=== PATIENT | male | born 1995 | race Asian ===

== ENCOUNTER 2023-12-21 15:19 | Outpatient (CLI) | payer OTHER ==
--- NOTE | 2023-12-21 15:55 | Sleep Patient Instructions ---
Sleep Center Visit Summary - Patient Visit Information Reason for Visit: Initial consult for evaluation of sleep disordered breathing and other sleep issues. - Patient Instructions Instructions Attached: Sleep Study Home Monitor Additional Instructions: You will be completing a sleep study, either an in-lab polysomnography (PSG) or home sleep study (HST). You will follow-up in the sleep care office after the sleep study is completed to hear the results and talk about therapy, if needed. You will be called by our office staff to schedule this appointment, but you may contact us with any questions. - Clinic Information Contact: [facility] [address] [place] [address] [email or web address] T: [phone]
--- NOTE | 2023-12-21 15:57 | SLEEP CARE CONSULTATION ---
Information from patient questionnaire entered by Tracy Perera. I have reviewed and concur with the information entered by Tracy Perera. This document represents the service I personally performed and the decisions made by me, Palmira Palomo ARNP. History of Present Illness Service Date and Time: 12/21/2023 1519 Reason for Visit: New patient Chief Complaint: reports: Snoring, Excessive daytime sleepiness, Observed pauses in breathing, Fatigue, Frequent awakenings at night Date of Onset: ALMOST 3MONTHS Usual bedtime: 930-10PM Time it takes to fall asleep: 15-20MINS Snores at night: Yes Observed to quit breathing while asleep: Yes Sleeps alone due to snoring: No Number of times waking at night: 5+ Reasons for waking at night: reports: Snoring, Gasping for air, Pain, Other (UNKNOWN). denies: Choking Toss, Turn, or Twitch while sleeping: Yes Recalls having dreams: Yes (has vivid dreams sometimes) Usually gets out of bed at: 4-430AM Feels refreshed in the morning: No (sometimes will feel rested) Morning headache: Yes (3-4 times a week; last about 30 mins, goes away with coffee in AM) Sleepy or fatigued during the day: Yes Ever fallen asleep while driving: No Takes day naps: Yes (3-4 days a week; 30-60 minutes normally) Dreams during day naps: Yes Prior sleep studies: No Additional HPI information: I had the pleasure of seeing INDIO HUGO today regarding the possibility of him having a sleep disorder. His current complaints are snoring, excessive daytime sleepiness, observed pauses in breathing, fatigue and frequent night awakenings. He says he saw his PCP about his snoring intermittently and "breathing loud" at night. He thought it was normal. He says when he takes a nap after work because he is tired and his has noticed that he stops breathing. He says he can wake up with a headache after sleeping or in the morning upon awakening. 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 Patient is and lives in . Have you smoked in the past 12 months: No Alcohol use: Yes Alcohol amount and frequency: 2-3 BOTTLES TWICE A MONTH OCCASSIONALLY Caffeine use: Yes Caffeine amount and frequency: EVERYDAY Family History Family history of sleep disordered breathing: Yes Family Hx Sleep Apnea: Father: Snoring Allergies and Home Medications Known drug allergies: No Drug allergies reviewed: Yes Home medication list reviewed: Yes Allergy and home medication list: Allergies No Known Drug Allergies Allergy (Verified 12/19/23 11:40) Home Medications Medication Instructions Recorded Confirmed Last Taken Type Amitriptyline [Elavil] See Rx Instructions .ROUTE .COMPLEX 12/21/23 12/21/23 Unknown History Meloxicam See Rx Instructions .ROUTE .COMPLEX 12/21/23 12/21/23 Unknown History Naproxen See Rx Instructions .ROUTE .COMPLEX 12/21/23 12/21/23 Unknown History Triamcinolone 0.1% Oint [Kenalog See Rx Instructions .ROUTE .COMPLEX 12/21/23 12/21/23 Unknown History 0.1% Oint] Review of Systems Weight gain over past 5 years: 40 Cardiovascular: reports: chest pain. denies: high blood pressure Gastrointestinal: reports: heartburn Urinary: reports: frequency Neurological: reports: headaches, head trauma Psychiatric: reports: anxiety Ear/Nose/Throat: denies: tonsillectomy Musculoskeletal: reports: neck pain, back pain, muscle pain or cramping, mobility problems Immunologic: reports: rash, itching Physical Exam Vital signs obtained and entered by: SHERICE Puga MA Blood Pressure: 133/84 (RIGHT ARM) Cuff size: regular Heart Rate: 77 O2 Saturation: 99 Height: 6 ft Weight: 183 lb 12.8 oz Body Mass Index: 24.9 BMI Classification: Normal Neck circumference: 16.5 Mouth and throat: narrow oropharynx Soft palate: normal Hard palate: normal Uvula: normal Uvula visualization: 100% Mallampati Class I Tongue: enlarged in size with teeth farris on lateral edges Tonsils: small Neck: normal w/o lymphadenopathy or thyromegaly Heart: regular rate and rhythm Lungs: clear bilaterally Impression and Plan 1. Suspected Obstructive Sleep Apnea-Hypopnea Syndrome, as suggested by a history of loud and irregular snoring, observed cessation of breath while asleep, gasping or choking in sleep, morning headache, frequent awakening during the night, unrefreshed sleep, cognitive impairment, and excessive daytime sleepiness. Narrow oropharynx and obesity are common predisposing factors for obstructive sleep apnea-hypopnea syndrome. I recommend proceeding to polysomnography to confirm the diagnosis and to assess severity. If the patient has significant sleep disordered breathing, a manual CPAP titration study will also be performed to find the optimal treatment pressure. I informed the patient of what the sleep studies involve and after some discussion, obtained agreement to proceed. The pathophysiology of obstructive sleep apnea-hypopnea syndrome was discussed with the patient and health risks of cardiovascular and cerebrovascular disease if not treated. Risks of drowsy driving discussed in detail and patient advised to avoid long distance driving and to pulley man at the first sign of drowsiness. Patient agreed to plan. * Schedule polysomnography +- manual CPAP titration study and return in 1-2 weeks after the study to discuss result and initiate therapy. * Avoid long distance driving or driving when feeling sleepy. * Avoid alcohol, sedative and muscle relaxant around bedtime. * Review instructions provided by trained office staff on how to prepare for the sleep study. * Return for follow-up after sleep study completed. Follow up with Sleep Care in: other (after sleep study to go over results) Plan: PSG/HST Visit Type: In Office Time Spent with Patient (minutes): 34 Provider Statement: I spent 100% of the Face to Face Visit with the patient with greater than 50% spent counseling the patient and coordination of care.
[2023-12-21 15:59] VITALS: BP 133/84; O2SAT 99
== END 2023-12-21 15:20 | disposition home or self-care (01) ==
LOC: SC 15:19
PROVIDERS: ATTEND Nurse Practitioner Family
DX: R06.83 Snoring (principal); G47.8 Other sleep disorders; R06.81 Apnea, not elsewhere classified; R51.9 Headache, unspecified; G47.10 Hypersomnia, unspecified; R53.83 Other fatigue; R41.89 Other symptoms and signs involving cognitive functions and awareness
CPT/HCPCS: 99203; 99212

== ENCOUNTER 2024-02-01 12:25 | Outpatient (CLI) | payer OTHER | END 2024-02-01 12:26 | disposition home or self-care (01) | LOC: SC 12:25 | PROVIDERS: ATTEND Nurse Practitioner Family | DX: R09.02 Hypoxemia (principal) | CPT/HCPCS: 95806 ==

== ENCOUNTER 2024-03-09 14:47 | Outpatient (CLI) | payer OTHER ==
--- NOTE | 2024-03-09 14:59 | Sleep Patient Instructions ---
Sleep Center Visit Summary - Patient Visit Information Reason for Visit: Sleep study follow-up - Patient Instructions Additional Instructions: Your sleep study today was negative for significant sleep disordered breathing. You were found to have episodes of snoring. There are different ways to control snoring including weight loss, oral devices made by a dentist or surgical options through ENT specialist. You should not use oral devices that do not fit properly because they can affect your bite. You should also check insurance coverage of oral devices for snoring because they may not be cover well. You may obtain a referral to an ENT specialist through your primary provider. Follow-up as needed. - Clinic Information Contact: [facility] [address] [place] [address] [email or web address] T: [phone]
--- NOTE | 2024-03-09 15:01 | SLEEP CARE CONSULTATION ---
Information from patient questionnaire entered by Tracy Perera. I have reviewed and concur with the information entered by Tracy Perera. This document represents the service I personally performed and the decisions made by , Palmira Palomo ARNP. History of Present Illness Service Date and Time: 03/09/2024 144 Initial [place] Sleepiness Scale score: 17 (12/01/23) Current [place] Sleepiness Scale score: 16 (03/09/24) Additional HPI information: INDIO HUGO returns for follow up and results of the recently performed home sleep study. The patient was informed of the following findings: No significant sleep disordered breathing with an average AHI of 1.9 and jennifer oxygen saturation of 84%. I explained the pathophysiology behind obstructive sleep apnea. Patient does not have sleep apnea and was advised how weight gain could increase the risk of developing sleep apnea in the future. Patient has moderate snoring. Snoring can be reduced by weight loss. Weight loss is best achieved with diet consult. Patient instructed to contact PCP for referral. Snoring can also be treated with an oral appliance from a dentist. Advised to check insurance coverage. In addition, an ENT evaluation can be do to see if other treatment is indicated. Patient counseled not drink alcohol less than 4 hours before bedtime as it can increase snoring and apnea. Patient was cautioned about risks of drowsy driving until sleepiness symptoms resolve. Patient denies drowsy driving. Sleep Study - Results Type of Sleep Study: Home sleep study (COMPLETED ) Prior sleep studies: No Polysomnography/Home Sleep Study results: Physician Impression: The quality of the study is good. The length of the study is adequate (> 240 minutes). Please also see the tabulated and graphic data. 1. No significant sleep disordered breathing, with an AHI of 1.9/hr and jennifer SaO2 of 84%. During the study, the patient had 13 apneas (13 obstructive, 0 central, 0 mixed) and 3 hypopneas. The longest episode lasted 50.0 seconds. The patient only slept supine during this study (supine AHI was 1.9 and non-supine, 0.00). 2. Hypoxemia (ICD-10 R09.02), minimal, with the lowest oxygen saturation of 84 % and 0.3 minutes with SaO2 under 90%. Baseline oxygen saturation was normal (Average oxygen saturation was 97%). Allergies and Home Medications Known drug allergies: No Drug allergies reviewed: Yes Home medication list reviewed: Yes (no changes) Allergy and home medication list: Allergies No Known Drug Allergies Allergy (Verified 03/07/24 11:53) Review of Systems Review of systems same as previous: Yes (NO CHANGE) Physical Exam Vital signs obtained and entered by: TRACY Puga MA Blood Pressure: 112/76 (RIGHT ARM) Cuff size: long Heart Rate: 82 O2 Saturation: 99 Height: 6 ft Weight: 189 lb Body Mass Index: 25.6 BMI Classification: Overweight Impression and Plan 1. Snoring but no significant sleep disordered breathing. Patient advised that often weight loss will reduce snoring as well as apnea risk. An oral appliance can also be used for snoring. This would require a dental consultation. Patient cautioned not to use other online appliances as can cause bite issues. Patient is advised to check if insurance will cover. An ENT consult can also be helpful to determine if any other treatment is an option. * Maintain a healthy weight * Avoid alcohol consumption near bedtime * Return in as needed for follow up. Counseling Topics: Weight control Follow up with Sleep Care in: as needed Visit Type: In Office Time Spent with Patient (minutes): 10 Provider Statement: I spent 100% of the Face to Face Visit with the patient with greater than 50% spent counseling the patient and coordination of care.
[2024-03-09 15:10] VITALS: BP 112/76; O2SAT 99
== END 2024-03-09 14:48 | disposition home or self-care (01) ==
LOC: SC 14:47
PROVIDERS: ATTEND Nurse Practitioner Family
DX: R06.83 Snoring (principal); E66.3 Overweight; Z68.25 Body mass index [BMI] 25.0-25.9, adult
CPT/HCPCS: 99212